=== PATIENT | female | born 1990 | race Caucasian/White ===

== ENCOUNTER 2021-03-18 13:21 | Emergency (ER) | payer SELFPAY ==
--- NOTE | 2021-03-18 15:49 | CR ---
PROCEDURE INFORMATION: Exam: XR Right Knee Exam date and time: 03/18/2021 3:27 PM Age: 31 years old Clinical indication: Other: Fell on it; Additional info: Fall, injury, pain TECHNIQUE: Imaging protocol: XR Right knee. Views: 3 views. COMPARISON: No relevant prior studies available. FINDINGS: Bones/joints: Post ACL repair. Soft tissues: Normal. IMPRESSION: Postsurgical changes. No acute findings.
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
== END 2021-03-18 16:02 | disposition home or self-care (01) ==
LOC: DL.ED 13:21
DX: S06.0X0A Concussion without loss of consciousness, initial encounter (principal); S83.91XA Sprain of unspecified site of right knee, initial encounter; S76.301A Unspecified injury of muscle, fascia and tendon of the posterior muscle group at thigh level, right thigh, initial encounter; Z88.1 Allergy status to other antibiotic agents; W22.8XXA Striking against or struck by other objects, initial encounter
CPT/HCPCS: 73562-RT; 99283